=== PATIENT | female | born 2000 | race African-American/Black ===

== ENCOUNTER 2018-07-06 18:58 | Emergency (ER) | payer SELFPAY ==
[~2018-07-06] VITALS: Ht 154.9 cm; Wt 43.5 kg
[2018-07-06 19:38] LABS: BILIRUBIN 1+ (NEGATIVE); BLOOD 1+ (NEGATIVE); CLARITY SL CLOUDY (CLEAR); COLOR YELLOW (YELLOW); GLUCOSE NEGATIVE (NEGATIVE); KETONE 1+ (NEGATIVE); LEUKO ESTERASE NEGATIVE (NEGATIVE); NITRITE NEGATIVE (NEGATIVE); SPECIFIC GRAVITY 1.025 (1.005-1.030); UROBILINOGEN 0.2 E.U./dl (0.2-1.0)
[2018-07-06 19:52] LABS: BACTERIA 1+; EPITHELIAL CELLS TNTC; MUCOUS 1+
[2018-07-06] MEDS ORDERED: FLAGYL500 MG PO (20:15)
== END 2018-07-06 20:11 | disposition home or self-care (01) ==
LOC: ED 18:58
PROVIDERS: Family Medicine
DX: N76.0 Acute vaginitis (principal)